=== PATIENT | female | born 1945 | race Caucasian/White ===

== ENCOUNTER 2018-02-27 06:25 | Day surgery (SDC) | payer MEDICARE ==
[~2018-02-27 06:25] MED LIST: Buffered Lidocaine 0.9% SYRIN* 5 ML/SYR SYRINGE INTRADERM ONE; Dexamethasone IV* 4 MG/ML 1 ML (4 MG) IV SLOW PU ONE; Famotidine IV* 10 MG/ML 2 ML (20 mg) IV ONE; Lactated Ringers 1000 ML Bag* 1,000 ML IV SCH
[2018-02-27] MEDS ORDERED: Famotidine IV* 10 MG/ML 2 ML (20 mg) ONE (06:30)
[2018-02-27] MEDS ORDERED: Dexamethasone IV* 4 MG/ML 1 ML (4 MG) ONE ×2 (06:30→07:23)
[2018-02-27] MEDS ORDERED: ceFAZolin 2 GM PREMIX in ORs 0 GM/0 ML BAG IVPB ONE (06:30)
[2018-02-27] MEDS ORDERED: Clindamycin 900 MG/D5W BAG(*) 900 MG/50 ML BAG IVPB ONE (06:47)
[2018-02-27] MEDS ORDERED: Midazolam* 1 MG/ML 5 ML VIAL (5 MG) ONE (07:14)
[2018-02-27] MEDS ORDERED: fentaNYL* 50 MCG/ML 2 ML VIAL (100 MCG VIAL) ONE (07:14)
[2018-02-27] MEDS ORDERED: Lidocaine 2% PF * 5 ML VIAL ONE (07:14)
[2018-02-27] MEDS ORDERED: Propofol* 10 MG/ML 20 ML BTL ONE (07:14)
[2018-02-27] MEDS ORDERED: Lidocaine 1% INJ* 10 MG/ML 30 ML SDV ONE (07:23)
[2018-02-27] MEDS ORDERED: Bupivacaine 0.5% PF 10 ML VIAL INJ ONE (07:23)
[2018-02-27] MEDS ORDERED: oxyCODONE/Acetamin 5/325 MG* TAB PO PRN (07:26)
[2018-02-27] MEDS ORDERED: fentaNYL* 50 MCG/ML 2 ML VIAL (100 MCG VIAL) IV PRN (07:26)
[2018-02-27] MEDS ORDERED: Naloxone* 0.4 MG/ML 1 ML VIAL IV PRN (07:26)
[2018-02-27] MEDS ORDERED: DiMENhydriNATE IV* 50 MG/ML VIAL IV PUSH PRN (07:26)
[2018-02-27] MEDS ORDERED: HYDROcodone/ACETAMIN 5-325 MG* 1 TAB PO PRN (07:26)
[2018-02-27] MEDS ORDERED: Ondansetron INJ* 2 MG/ML VIAL ONE (08:30)
[2018-02-27 09:45] VITALS: BP 119/68
--- NOTE | 2018-02-27 11:26 | OP ---
OPERATIVE REPORT: DATE OF OPERATION: 02/27/18 - DAVID DATE OF : 49 SURGEON: Filiberto Gutierrez DPM. CLAM BED WORKER: None. ANESTHESIOLOGIST: Osmar Russo MD ANESTHESIA: MAC with local. PRE-OP DIAGNOSIS: Painful hallux rigidus with advanced degenerative changes, right great toe joint. POST-OP DIAGNOSIS: Painful hallux rigidus with advanced degenerative changes, right great toe joint. OPERATIVE PROCEDURE: Cheilectomy with BioPro yaa great toe joint implant on the right. PATHOLOGY: Degenerative bone. HEMOSTASIS: Pneumatic ankle tourniquet. MATERIALS: A size small/medium porous-coated BioPro yaa great toe joint implant. INDICATIONS: The patient with chronic and progressive right great toe joint pain, stiffness, and osteophyte proliferation with virtually no range of motion available. The patient has pain while wearing shoes and walking and any attempt to bend or manipulate the toe. The patient opts for surgery at this time to attempt to increase range of motion, decrease pain and improve function. DESCRIPTION OF PROCEDURE: The patient was brought to the operating room and placed on the operating table in supine position. The anesthesia department administered IV sedation and peripheral nerve block was performed about the right forefoot with 1:1 mixture of 1% lidocaine plain and 0.5% Marcaine plain. The right foot was prepped and draped in the usual fashion. An Esmarch bandage was then utilized to exsanguinate the right foot and a pneumatic ankle tourniquet was inflated to 250 mmHg about a well-padded right ankle. Attention was directed to the dorsomedial aspect of the right great toe joint, where a linear incision was made. The incision was deepened through subcutaneous tissues with care being taken to retract neurovascular structures and cauterize superficial bleeders as needed. A linear periosteal and capsular incision was made to allow for exposure of the joint. There was noted to be an abundance of hypertrophic synovium and osteophyte proliferation at the medial, dorsal, and lateral aspects of the joint. Using a rongeur and sagittal saw, the osteophytes were resected. Power lauren was used to smooth rough edges. Next, in preparation for the implant, using standard technique and the sagittal saw, the base of the proximal phalanx was resected, taking slightly more medially to offer some angular correction as well. The dissection and periosteal attachments were reflected with care being taken to maintain intrinsic attachments to the proximal phalanx. The surgical site was flushed with copious amounts of normal sterile saline. The implant was sized, and then using standard technique implanted and seated flush. The range of motion was found to be free of restriction or impingement, particularly dorsally. The implant was visually inspected and found to be seated well. Intraoperative C- arm was used to assess placement. Surgical site was again flushed with copious amounts of normal sterile saline. Some hypertrophic synovium was resected and using 2-0 and 4-0 Vicryl, the periosteal and capsular tissues were reapproximated and secured. Subcutaneous tissues were reapproximated with 4-0 Vicryl and skin was reapproximated with 5-0 nylon. The incision was dressed with Xeroform gauze and a light compressive dressing consisting of 4x4 gauze, Servando, and light Coban wrap was applied. The pneumatic ankle tourniquet was deflated about the right ankle and a prompt hyperemic response was noted of all 5 digits of the patient's right foot. Having appeared to tolerate the procedures and anesthesia well, the patient was transported via cart from the operating room to Recovery in satisfactory condition with cap refill less than 3 seconds to all digits of the right foot. [id number]/[facility] #: [id number] MTDMorteza
== END 2018-02-27 09:45 | disposition home or self-care (01) ==
LOC: OREAST 06:25
PROVIDERS: ATTEND Podiatrist Foot Surgery
DX: M19.071 Primary osteoarthritis, right ankle and foot (principal); M20.21 Hallux rigidus, right foot; I10 Essential (primary) hypertension; E78.5 Hyperlipidemia, unspecified; M79.7 Fibromyalgia; G25.81 Restless legs syndrome
CPT/HCPCS: 76000; 88304; 88311; C1776; J0690; J1100; J2250; J2405; J2704; J3010

== ENCOUNTER 2018-08-14 07:31 | Emergency (ER) | payer MEDICARE, OTHER ==
--- NOTE | 2018-08-14 07:45 | ED ---
Lower Extremity - HPI Summary HPI Summary: Pt. is a 72 y.o female who presents to the ER for left ankle/foot injury that occurred yesterday. Pt. states yesterday she twisted left ankle in parking lot. Pain and swelling persisted into today. Pt. able to ambulate with pain. Sxs are mild in severity. Walking makes sxs worse. Rest makes sxs better. - History of Current Complaint Chief Complaint: EDExtremityLower Stated Complaint: LEFT FOOT INJURY PER PT Time Seen by Provider: 08/14/18 07:38 Hx Obtained From: Patient Pain Intensity: 4 - Allergies/Home Medications Allergies/Adverse Reactions: Allergies Allergy/AdvReac Type Severity Reaction Status Date / Time cephalexin Allergy Unknown Unknown Verified 08/14/18 07:33 Reaction Details enviromental Allergy Intermediate Congestion, Uncoded 08/14/18 07:33 sneezing, headaches Home Medications: Home Medications Calcium Carbonate/Vitamin D3 [Calcium 600/Vitamin D3] 2 tab PO BID 08/14/18 [ History Confirmed 08/14/18] Fexofenadine (NF) [Brittani 180 (NF)] 180 mg PO DAILY 08/14/18 [History Confirmed 08/14/18] Fluticasone NASAL SPRAY 50MCG* [Flonase NASAL SPRAY 50MCG*] 2 puff INH DAILY [History Confirmed 08/14/18] Lisinopril 10 mg PO DAILY 08/14/18 [History Confirmed 08/14/18] clonazePAM [Clonazepam] 1 mg PO BEDTIME 08/14/18 [History Confirmed 08/14/18] rOPINIRole TAB* [Requip TAB*] 2 mg PO TID 08/14/18 [History Confirmed 08/14/18] PMH/Surg Hx/FS Hx/Imm Hx Previously Healthy: Yes Endocrine/Hematology History: Denies: Hx Diabetes, Hx Thyroid Disease Cardiovascular History: Reports: Hx Hypertension - ON MEDICATION Respiratory History: Reports: Hx Seasonal Allergies - also enviromental (dust, mold, pollens), Other Respiratory Problems/Disorders - HX ON PNEUMONIA. SEASONAL ALLERGIES. Denies: Hx Chronic Obstructive Pulmonary Disease (COPD) Comment Only: Hx Asthma - seasonal GI History: Denies: Hx Ulcer History: Reports: Other Problems/Disorders - 09/2011- PROLAPSED BLADDER SURGERY- Musculoskeletal History: Reports: Hx Arthritis - FINGERS, osteopenia-hips and lumbar, Hx Fibromyalgia, Other Musculoskeletal History - 09/12 stage III cystocele, 10/07 bilateral reduction mammoplasty Denies: Hx Osteoporosis Sensory History: Reports: Hx Cataracts, Hx Contacts or Glasses - GLASSES, Hx Vision Problem - 02/07 resection (left) lateral rectus muscle Denies: Hx Hearing Aid Opthamlomology History: Reports: Hx Cataracts, Hx Contacts or Glasses - GLASSES , Hx Vision Problem - 02/07 resection (left) lateral rectus muscle Neurological History: Reports: Other Neuro Impairments/Disorders - FIBROMYALGIA Psychiatric History: Reports: Hx Depression - ON MEDICATION FOR - Cancer History Hx Chemotherapy: No Hx Radiation Therapy: No - Surgical History Surgery Procedure, Year, and Place: bladder 2011. bilat cataract 10 years ago. [place] [facility] [place]RE[place]- [place] [facility] [place]UBAL [place]IG[place]. LT 4TH FINGER- DISTAL (AMPUTATION INJURY/SURGERY) Hx Anesthesia Reactions: No Infectious Disease History: No Infectious Disease History: Denies: Hx Clostridium Difficile, Hx Hepatitis, Hx Human Immunodeficiency Virus (HIV), Hx of Known/Suspected MRSA, Hx Shingles, Hx Tuberculosis, Hx Known/ Suspected VRE, Hx Known/Suspected VRSA, History Other Infectious Disease, Traveled Outside the in Last 30 Days - Family History Known Family History: Positive: Non-Contributory - Social History Occupation: Employed Full-time Lives: With Family Alcohol Use: None Substance Use Type: Reports: None Smoking Status (MU): Never Smoked Tobacco Have You Smoked in the Last Year: No Review of Systems Positive: Other - left foot and ankle pain Positive: Bruising Neurological: Negative Negative: Weakness, Paresthesia, Numbness All Other Systems Reviewed And Are Negative: Yes Physical Exam Triage Information Reviewed: Yes Vital Signs On Initial Exam: Initial Vitals Temp Pulse Resp BP Pulse Ox 99.7 F 81 16 161/89 98 08/14/18 07:33 08/14/18 07:33 08/14/18 07:33 08/14/18 07:33 08/14/18 07:33 Vital Signs Reviewed: Yes Appearance: Positive: Well-Appearing - Pt. sitting on bed in NAD. Family member present. Skin: Positive: Warm, Dry Head/Face: Positive: Normal Head/Face Inspection Eyes: Positive: Normal, EOMI, TAMMIE Neck: Positive: Supple Musculoskeletal: Positive: Other - Ecchymosis and pain to proximal left foot. Mild pain to lateral malleolus. Achilles tendon intact. No proximal tib/fib or knee pain. Superficial abrasion over lying right knee without bony tenderness. Neurological: Positive: Normal, CN Intact II-III Psychiatric: Positive: Affect/Mood Appropriate Procedures - Splinting Left Lower Extremity Pre-Made Type: aircast Pre-Proc Neuro Vasc Exam: normal Post-Proc Neuro Vasc Exam: normal Diagnostics - Vital Signs Vital Signs Temp Pulse Resp BP Pulse Ox 08/14/18 07:33 99.7 F 81 16 161/89 98 - Laboratory Lab Statement: Any lab studies that have been ordered have been reviewed, and results considered in the medical decision making process. Lower Extremity Course/Dx - Course Course Of Treatment: Foot and ankle xray show questionable distal fibula avulsion fx per radiology. This was discussed with pt. and ankle re-examined. Pt. has no pain to distal fibula. Sp and air splint placed. TO ice and elevate. Tylenol or motrin for pain as directed. Activity as tolerated. Will f.u with PCP if pain persist. Pt. understands and agrees with plan. - Diagnoses Differential Diagnosis/HQI/PQRI: Positive: Contusion, Dislocation, Fracture ( Closed), Sprain, Strain Provider Diagnoses: Foot sprain Discharge - Sign-Out/Discharge Documenting (check all that apply): Patient Departure Patient Received Moderate/Deep Sedation with Procedure: No - Discharge Plan Condition: Good Disposition: HOME Patient Education Materials: Foot Sprain (ED) Referrals: Chante Vargas NP [Primary Care Provider] - Additional Instructions: Follow up with PCP if pain persist Ice and elevate intermittently Tylenol or Motrin for pain as directed Return to ER if symptoms change or worsen - Billing Disposition and Condition Condition: GOOD Disposition: Home
[2018-08-14 09:09] VITALS: BP 160/102
== END 2018-08-14 09:08 | disposition home or self-care (01) ==
LOC: ED 07:31
DX: S93.602A Unspecified sprain of left foot, initial encounter (principal); X50.1XXA Overexertion from prolonged static or awkward postures, initial encounter; Y92.481 Parking lot as the place of occurrence of the external cause; I10 Essential (primary) hypertension; J30.2 Other seasonal allergic rhinitis; M79.7 Fibromyalgia; F32.9 Major depressive disorder, single episode, unspecified; Z89.022 Acquired absence of left finger(s); Z88.1 Allergy status to other antibiotic agents
CPT/HCPCS: 99282